=== PATIENT | female | born 1945 | race Asian ===

== ENCOUNTER 2022-11-14 14:34 | Outpatient (CLI) | payer OTHER | END 2022-11-14 19:14 | disposition home or self-care (01) | LOC: RAD 14:34 | PROVIDERS: ATTEND Internal Medicine | DX: E11.9 Type 2 diabetes mellitus without complications (principal); D72.828 Other elevated white blood cell count; I10 Essential (primary) hypertension | CPT/HCPCS: 81000 ==

== ENCOUNTER 2023-02-14 11:48 | Outpatient (CLI) | payer OTHER | END 2023-02-14 21:51 | disposition home or self-care (01) | LOC: US 11:48 | PROVIDERS: ATTEND Internal Medicine | DX: R60.0 Localized edema (principal); M79.602 Pain in left arm ==

== ENCOUNTER 2023-03-04 09:27 | Outpatient (CLI) | payer OTHER | END 2023-03-04 20:17 | disposition home or self-care (01) | LOC: CT 09:27 | PROVIDERS: ATTEND Internal Medicine | DX: R22.9 Localized swelling, mass and lump, unspecified (principal); R06.02 Shortness of breath; R07.89 Other chest pain | CPT/HCPCS: 36415; 82565; 84520; Q9963 ==

== ENCOUNTER 2023-08-30 10:34 | Outpatient (CLI) | payer OTHER | END 2023-08-30 20:06 | disposition home or self-care (01) | LOC: MAMMO 10:34 | PROVIDERS: ATTEND Internal Medicine | DX: Z12.31 Encounter for screening mammogram for malignant neoplasm of breast (principal) ==